=== PATIENT | male | born 1995 | race Caucasian/White ===

== ENCOUNTER 2017-08-25 17:11 | Emergency (ER) | payer OTHER ==
[2017-08-25] MEDS: ONDANSETRON 4MG/2ML VIAL (J2405) IV (18:45)
[2017-08-25] MEDS: predniSONE 20 MG TAB PO (18:45)
[2017-08-25] MEDS: KETOROLAC 30 MG/ML VIAL (J1885) IV (18:45)
[2017-08-25] MEDS: ALBUTEROL SULFATE 2.5 MG/0.5 ML INH NEB SOLN NEB (19:37)
[2017-08-25] MEDS: DOXYCYCLINE HYCLATE 100 MG TAB PO (20:45)
== END 2017-08-25 21:20 | disposition home or self-care (01) ==
LOC: M ED 17:11
DX: J18.9 Pneumonia, unspecified organism (principal); J98.01 Acute bronchospasm; R06.02 Shortness of breath; R11.2 Nausea with vomiting, unspecified; Z87.891 Personal history of nicotine dependence
CPT/HCPCS: J2405

== ENCOUNTER → 2018-02-02 | Outpatient (CLI) | payer OTHER ==
[2018-02-02 14:24] LABS: PLATELET COUNT, AUTOMATED 261 10^3/uL (150-450)
[2018-02-02 14:34] LABS: INR 1.07; PARTIAL THROMBOPLASTIN TIME 29.3 SECONDS (25.4-37.6)
[2018-02-02 14:38] LABS: COLLAGEN EPINEPHRINE 147 SECONDS (74-162)
== END ==
LOC: M LAB 13:42
DX: Z01.818 Encounter for other preprocedural examination (principal); M51.27 Other intervertebral disc displacement, lumbosacral region; M51.37 Other intervertebral disc degeneration, lumbosacral region; M47.817 Spondylosis without myelopathy or radiculopathy, lumbosacral region
CPT/HCPCS: 85049